=== PATIENT | male | born 1970 | race Caucasian/White ===

== ENCOUNTER 2024-05-15 15:29 | Observation (INO) ==
[2024-05-15] MEDS: SODIUM CHLORIDE 0.9% 1,000 ML IV ONE (15:59)
[2024-05-15 16:26] LABS: Basophils # (auto) 0.04 K/uL (0.00-0.20); Basophils % (auto) 0.2 %; Eosinophils # (auto) 0.05 K/uL (0.00-0.50); Eosinophils % (auto) 0.3 %; Hematocrit (blood only) 43.7 % (42.0-52.0); Hemoglobin 14.6 g/dl (14.0-18.0); Immature Granulocytes # (auto) 0.08 K/uL (0.01-0.20); Immature Granulocytes % (auto) 0.4 %; Lymphocytes # (auto) 1.65 K/uL (1.20-3.40); Lymphocytes % (auto) 8.9 %; Mean Corpuscular Hemoglobin 28.7 pg (25.0-34.0); Mean Corpuscular Hgb Conc 33.4 g/dL (32.0-36.0); Mean Platelet Volume 9.7 fL (9.4-12.4); Monocytes # (auto) 1.21 K/uL (0.11-0.59); Monocytes % (auto) 6.5 %; Neutrophils # (auto) 15.51 K/uL (1.40-6.50); Neutrophils % (auto) 83.7 %; Platelet Count 341 K/uL (130-400); RDW Standard Deviation 37.6 fL (36.4-46.3); Red Blood Count 5.08 M/uL (4.70-6.10); White Blood Count 18.54 K/ul (4.8-10.8)
[2024-05-15] MEDS: ONDANSETRON INJ 2 MG/ML 2 ML VIAL IV STA (16:27)
[2024-05-15] MEDS: KETOROLAC TROMETHAMINE 15 MG/ML VIAL IV STA (16:27)
[2024-05-15 16:42] LABS: Albumin Globulin Ratio 1.7 (0.9-2); Albumin Level 4.3 gm/dl (3.4-5.0); BUN Creatinine Ratio 9.5 (10-20); Bilirubin,Total 0.8 mg/dl (0.2-1.0); Calcium 9.2 mg/dl (8.6-10.3); Creatinine Clr Calc Pharmacy 72.8 ml/min; Globulin 2.6 gm/dl (2.5-4.0); Potassium 4.2 mmol/L (3.5-5.1); Total Protein 6.9 gm/dl (6.0-8.3)
[2024-05-15] MEDS: SODIUM CHLORIDE 0.9% 1,000 ML IV SCH (18:28)
[2024-05-15] MEDS ORDERED: MoRPHine SULFATE 2 MG/ML CARP IV PRN (18:37)
[2024-05-15 18:59] LABS: Appearance Urine Clear (Clear); Bacteria Urine Automated None Seen (None Seen); Bilirubin Urine Negative (Negative); Blood Urine 3+ (Negative); Cast Urine Automated 0-2 /lpf (0-2); Color Urine Yellow; Epithelial Cell Urine Auto 0-2 /hpf (0-2); Glucose Urine UA Negative (Negative); Ketones Urine Trace (Negative); Leukocyte Esterase Urine Negative (Negative); Nitrite Urine Negative (Negative); Protein Urine Negative (Negative); RBC Urine Automated >20 /hpf (0-2); Specific Gravity Urine 1.031 (1.000-1.030); Urobilinogen Urine Negative (Negative); WBC Urine Automated 0-5 /hpf (0-5)
--- NOTE | 2024-05-15 19:02 | History & Physical Report ---
Date of Service May 15, 2024 Assessment & Plan (1) Calculus of distal left ureter: (2) MATTHEW (acute kidney injury): (3) Elevated WBC count: Plan 53 yr old M w/o known PMH being managed for the following: #Distal L ureteral calculus with mild hydronephrosis #MATTHEW #Leukocytosis admit to medical initial UA today and yesterday negative for bacturia empirically tx with 2g IV rocephin given leukocytosis though likely reactive in setting of pain given matthew avoid nephrotoxic agents Schedule APAP, prn oxy for moderate pain and prn IV morphine for severe pain NSS 150/hr continue flomax NPO after midnight, consult urology who will see pt in the am. Unknown baseline renal fxn, suspect elevated in setting of stone, repeat bmp in a.m. he did receive a dose of Toradol in ED #tobacco abuse: chews 4cans/week, encourage cessation, nicotine patch offered and declined at this time #Elevated BP reading: likely in setting of pain, monitor closely, prn IV hydralazine ordered for SBP > 180 DVT ppx: encourage ambulation, if to remain hospitalized > 24hrs consider chemical ppx FULL CODE PCP: None, needs to establish Dispo: admit to medical Pt was seen and examined in collaboration with Dr. Duron, please see addendum I spent a total of 52 minutes coordinating, documenting and providing care for this patient excluding time spent in the performance of separately billed services or time spent by another provider/QHP. History of Present Illness Chief Complaint: Suprapubic pain x 4 days. Primary Care Provider: NO PCP This is a 53-year-old male who has a no pertinent significant past medical history who presents to ED secondary to suprapubic pain. Patient was seen in ED yesterday secondary to left flank pain. He underwent a CT scan of his abdomen pelvis which revealed a 5 mm distal left ureteral calculus associate with perinephritic and periureteral stranding. The degree of left hydronephrosis difficult to assess given parapelvic cysts however at most mild left hydronephrosis was noted. He was discharged with daily Flomax as well as Zofran. He states he woke up at approximately 5 AM this morning secondary to severe left lower quadrant pain. The pain has been waxing and waning throughout the day and currently is located in the suprapubic region. Currently he states pain is 8 out of 10. He reports having a kidney stone in the past for which he sought urgent care and believes he passed on his own. He denies ever having a procedure for a kidney stone. He denies any dysuria or hematuria. He admits to decreased frequency. He has been pushing fluids throughout today and otherwise has a decreased appetite. He denies any fever, chills, sweats, lightheadedness, dizziness, chest pain, shortness of breath, nausea or vomiting. He has not followed with a routine primary care provider. He is unaware of any chronic illnesses he does not take any prescription medication on a regular basis. He is unaware of when his last kidney function may have been evaluated or what the number was. He denies any family history of any renal disease. He does chew 4 cans of snuff a week but otherwise denies any smoking or alcohol use. In ED patient was hemodynamically stable. He was moderately hypertensive in setting of pain. He did have an elevated white blood cell count of 18.54k and elevated creatinine of 1.47. His urinalysis was negative for bacteria. Hx obtained from pt and ED provider. Allergies Allergy/AdvReac Type Severity Reaction Status Date / Time No Known Allergies Allergy Mild Verified 05/14/24 08:46 Home Medications Medication Instructions Recorded Confirmed Type ondansetron 4 mg disintegrating 4 mg PO Q8H PRN nausea and 05/14/24 05/15/24 Rx tablet vomiting #10 tabs tamsulosin 0.4 mg capsule (Flomax) 0.4 mg PO DAILY #14 caps 05/14/24 05/15/24 Rx Past Med/Surg History Problem List (Updated 05/15/24 @ 23:10 by Bladimir Villar MD) MATTHEW (acute kidney injury) Acute left flank pain (Acute) Elevated serum creatinine (Acute) Elevated WBC count (Acute) Calculus of distal left ureter (Acute) Neuritis of left saphenous nerve Bursitis, prepatellar, left Surgical History H/O arthroscopy of right knee Family History Brother Crohn's disease Denies family history of Diabetes Coronary heart disease Kidney disease Social History Smoking Status: Former smoker Tobacco Type: Smokeless Tobacco (Dip or Chew) Second Hand Exposure: No; Do You Dip or Chew Tobacco: Yes (chews 4 cans a week); Hx Alcohol Use: No Hx Substance Use: No Preferred Language: Persian Communication Ability: Effective Patient Access Associate Required: No Beliefs That Will Affect Care: None marital status: Current Living Situation: Other Current Living Situation Comment: lives with son Feels Safe at Home: Yes Assistive Devices: Glasses Review of Systems Review of Systems: All systems reviewed & are unremarkable except as noted in HPI & below Physical Exam Physical Exam: Constitutional: WD/WN, vitals as above, Appears in pain, sitting up in bed, pleasant, conversing easily Head: Normocephalic, Atraumatic Eyes: PERRL, conjunctivae normal, anicteric sclerae ENMT: external ear and nose normal, oropharynx normal Neck: trachea midline, no thyromegaly normal visual inspection Respiratory: normal respiratory effort, lungs clear to auscultation, no wheeze, rales, rhonchi. Normal insp/exp effort, no accessory muscle use Cardiovascular: RRR, no murmur, no edema Vessels: no JVD or carotid bruit Chest: normal inspection of chest Abdomen: TTP suprapubic region, normal bowel sounds, soft, nontender, no hepatosplenomegaly Musculoskeletal: no cyanosis or clubbing, extremities motor strength 5/5 Skin: no rashes, warm and dry normal turgor Neurologic: PERRL, EOMI, accommodation nl, no face palsy, no dysarthria CN's II-XI intact bilaterally and moves all extremities Psychiatric: A+Ox3, euthymic affect Lymphatic: no cervical or axillary lymphadenopathy : deferred Results & Data Results & Data Vital Signs (Past 12 Hours) Vital Signs Temp Pulse Pulse Resp BP BP Pulse Ox 05/15/24 17:29 56 L 18 152/100 H 96 05/15/24 17:15 60 05/15/24 15:46 36.9 C 65 18 151/86 H 96 O2 Del Method 05/15/24 17:29 Room Air 05/15/24 17:15 05/15/24 15:46 Room Air Laboratory Results I have independently reviewed and interpreted patient's admitting labs including CBC, CMP, UA Medications Administered Medication List Sodium Chloride (Nss) 1,000 mls @ 125 mls/hr IV .Q8H NERIS Stop: 05/16/24 18:14 Last Admin: 05/15/24 18:28 Dose: 125 mls/hr Documented By: JAMAAL Discontinued Medications Sodium Chloride (Nss) 1,000 mls @ 999 mls/hr IV .Q1H1M ONE Stop: 05/15/24 16:50 Last Infusion: 05/15/24 17:15 Dose: Infused Documented By: Admin: 05/15/24 15:59 Dose: 999 mls/hr Documented By: CATALINA Ketorolac Tromethamine (Ketorolac Tromethamine 15 Mg/Ml Vial) 15 mg IV NOW STA Stop: 05/15/24 16:22 Last Admin: 05/15/24 16:27 Dose: 15 mg Documented By: OLGA Ondansetron HCl (Ondansetron Inj 2 Mg/Ml 2 Ml Vial) 4 mg IV NOW STA Stop: 05/15/24 16:22 Last Admin: 05/15/24 16:27 Dose: 4 mg Documented By: OLGA COVID-19 Results Results COVID-19 Adm Lab Results: RBC 5.08 M/uL (4.70-6.10) 05/15/24 WBC 18.54 K/ul (4.8-10.8) H 05/15/24 Hgb 14.6 g/dl (14.0-18.0) 05/15/24 Hct 43.7 % (42.0-52.0) 05/15/24 Plt Count 341 K/uL (130-400) 05/15/24 Neutrophils (%) (Auto) 83.7 % 05/15/24 Lymphocytes (%) (Auto) 8.9 % 05/15/24 Monocytes # (Auto) 1.21 K/uL (0.11-0.59) H 05/15/24 Eosinophils # (Auto) 0.05 K/uL (0.00-0.50) 05/15/24 Immature Granulocyte % (Auto) 0.4 % 05/15/24 Neutrophils # (Auto) 15.51 K/uL (1.40-6.50) H 05/15/24 Lymphocytes # (Auto) 1.65 K/uL (1.20-3.40) 05/15/24 Monocytes # (Auto) 1.21 K/uL (0.11-0.59) H 05/15/24 Eosinophils # (Auto) 0.05 K/uL (0.00-0.50) 05/15/24 Basophils # (Auto) 0.04 K/uL (0.00-0.20) 05/15/24 Immature Granulocyte # (Auto) 0.08 K/uL (0.01-0.20) 5 Na 137 mmol/L (136-145) 05/15/24 K 4.2 mmol/L (3.5-5.1) 05/15/24 Cl 102 mmol/L (98-107) 05/15/24 CO2 28 mmol/L (21-32) 05/15/24 Anion Gap 7 (3-11) 05/15/24 BUN 14 mg/dl (6-23) 05/15/24 Creatinine 1.47 mg/dl (0.6-1.4) H 05/15/24 BUN/Creatinine Ratio 9.5 (10-20) L 05/15/24 Glucose Level 122 mg/dl (70-99(Fasting)) H 05/15/24 Ca 9.2 mg/dl (8.6-10.3) 05/15/24 Total Bilirubin 0.8 mg/dl (0.2-1.0) 05/15/24 AST/SGOT 18 U/L (13-39) 05/15/24 ALT/SGPT 19 U/L (7-52) 05/15/24 Alkaline Phosphatase 65 U/L (34-104) 05/15/24 Total Protein 6.9 gm/dl (6.0-8.3) 05/15/24 Albumin 4.3 gm/dl (3.4-5.0) 05/15/24 Globulin 2.6 gm/dl (2.5-4.0) 05/15/24 Albumin/Globulin Ratio 1.7 (0.9-2) 05/15/24 Code Status & VTE Plan Code Status FULL CODE VTE Prophylaxis Plan VTE Prophylaxis will be ordered: No Supervising Physician Co-Signing Physician Notes Pt was seen and examined by myself, Sharon Duron MD on the day of service. Care was coordinated with Violeta Corona PA-C. 53yoM with obstructed kidney stone on the left, hydroureteronephrosis, perinephric starnding. Leukocytosis of 18K noted. UA grossly unremarkable. IV abx, pain control, strain urine. Urology consult. MATTHEW-unsure if current creatine is baseline Otherwise as above I spent a total [id number] coordinating, documenting, and providing care for this patient excluding time spent in the performance of separately billed services
[2024-05-15] MEDS: ACETAMINOPHEN 1,000 MG/100 ML VIAL IV STA (19:20)
--- NOTE | 2024-05-15 19:22 | XRay Report ---
Exam: 1 view abdomen. History: Left ureteral calculus. Left upper quadrant pain extending into the lower abdomen. Comparison: None. Findings: Small calcification projecting over the left inferior renal silhouette likely representing nephrolithiasis. No definitive calcification along the expected left ureteral distribution. Faint densities of the left pelvis may represent small calculi. Location indeterminate. There is small calcified density projecting over the right renal silhouette likely representing nephrolithiasis. No appreciated expected ureteral distribution calculus. Impression: Likely small bilateral renal calculi. No expected ureteral distribution calculi with small faint hyperdensities of the left pelvis. These may represent phleboliths. Distal ureteral calculi not entirely excluded. CT would be helpful for further characterization. Electronically signed by David Iqbal 05-15-2024 7:21 PM
--- NOTE | 2024-05-15 21:04 | Urology Consultation ---
Date of Consultation May 15, 2024 Assessment & Plan (1) Acute left flank pain: The patient has been admitted on the hospitalist service. From a urologic perspective we recommend the following: Provide analgesics Provide antiemetics Continue Flomax for expulsive therapy Hydrate with IV fluids Patient has been placed on empiric Rocephin and this can be tailored based on pending culture results At the present time the patient is normotensive without tachycardia or fever. He is nontoxic-appearing therefore I feel conservative measures are warranted at this time Will empirically make patient n.p.o. after midnight and he will be reevaluated by urology attending on 05/16/2024 and a determination will be made if patient requires cystoscopic intervention. Supervising Physician Co-Signing Physician Notes I have discussed Mr. Oliva's case with Jesu Scanlon PA-C and agree with the above documentation. -Gavin Matute MD. History of Present Illness Reason for Consultation: Renal colic Attending Physician: Sharon Gillis MD History of Present Illness This is a 53-year-old male who presents to the emergency department secondary to left flank pain. Patient says that this pain began approximate 24 hours ago and was located in the left flank pain with radiation to the front of his abdomen. He did not have any nausea or vomiting. He denies any fevers, shakes, or chills. He denies any dysuria or hematuria. He does report a remote history of kidney stone several years ago but did not require any procedure intervention. Patient notes that he did present to the emergency department on 05/14/2024 but was able to be discharged home. During this visit the patient did have a CT scan of the abdomen pelvis which showed the patient had a 5 mm distal left ureteral calculus with some perinephric stranding and some mild left h ydronephrosis. Labs at that time included CBC were white blood cell count was elevated 13.8. Hemoglobin and hematocrit as well as a platelet count were normal. Chemistry profile showed sodium and potassium were normal. His BUN and creatinine were 18 and 1.4. The urinalysis was not indicative of infection at that time. The patient returned to the emergency department this evening secondary to continued pain. He did have additional imaging which I independent reviewed. KUB showed the patient had what the radiologist felt were likely small bilateral renal calculi. A distal ureteral calculi could not be excluded. He had repeat labs where CBC revealed white blood cell count of 18.5. Hemoglobin, hematocrit, and platelet count were normal. Chemistry profile showed sodium and potassium were normal. His BUN and creatinine were 14 and 1.4. The urinalysis was again not indicative of infection. At the time of my interview the patient was resting comfortably in bed and he was in no distress Allergies Allergy/AdvReac Type Severity Reaction Status Date / Time No Known Allergies Allergy Mild Verified 05/14/24 08:46 Home Medications Medication Instructions Recorded Confirmed Type ondansetron 4 mg disintegrating 4 mg PO Q8H PRN nausea and 05/14/24 05/15/24 Rx tablet vomiting #10 tabs tamsulosin 0.4 mg capsule (Flomax) 0.4 mg PO DAILY #14 caps 05/14/24 05/15/24 Rx Patient History Surgical History H/O arthroscopy of right knee Family History Brother Crohn's disease Denies family history of Diabetes Coronary heart disease Kidney disease Social History Smoking Status: Former smoker Tobacco Type: Smokeless Tobacco (Dip or Chew) Second Hand Exposure: No; Do You Dip or Chew Tobacco: Yes (chews 4 cans a week); Hx Alcohol Use: No Hx Substance Use: No Preferred Language: Cymro Communication Ability: Effective Elevator Installer Required: No Beliefs That Will Affect Care: None marital status: Current Living Situation: Other Current Living Situation Comment: lives with son Feels Safe at Home: Yes Assistive Devices: Glasses Review of Systems Review of Systems: All systems reviewed & are unremarkable except as noted in HPI & below Physical Exam Constitutional: WD/WN, vitals as above Eyes: eyes not dysmorphic and + abnormal visual field confrontation ENMT: Ears: no hearing impairment and no external ear abnormality Mouth: no oropharynx abnormality Neck: trachea midline Respiratory: normal respiratory effort; no respiratory distress and no labored breathing Cardiovascular: Rate/Rhythm: regular rate and regular rhythm Gastrointestinal (Abdomen): Soft and nondistended. There is no pain with palpation Musculoskeletal: No calf tenderness Skin: no rashes Neurologic: moves all extremities Psychiatric: A+Ox3, euthymic affect Genitourinary: Slight CVA tenderness noted percussion on the left. No CVA tenderness with percussion on the right Results & Data Vital Signs (Past 12 Hours) Vital Signs Temp Pulse Pulse Resp BP BP Pulse Ox 05/15/24 19:00 68 20 174/99 H 96 05/15/24 17:29 56 L 18 152/100 H 96 05/15/24 17:15 60 05/15/24 15:46 36.9 C 65 18 151/86 H 96 O2 Del Method 05/15/24 19:00 Room Air 05/15/24 17:29 Room Air 05/15/24 17:15 05/15/24 15:46 Room Air PG Care Time/CCT Total # of Minutes Spent Total Time Spent with Patient: Total time spent is greater than 50% in coordination of care (as documented) at patient's floor/unit and/or counseling patient: Coding Level of Care Code 81934 IN/OBS CONSULT LVL 5,80M Diagnoses Acute left flank pain R10.9
[2024-05-15] MEDS ORDERED: ACETAMINOPHEN 325 MG TAB PO PRN (21:15)
[2024-05-15] MEDS ORDERED: oxyCODONE HCL IR 5 MG TAB (IMMEDIATE RELEASE) PO PRN (21:15)
[2024-05-15] MEDS ORDERED: ONDANSETRON INJ 2 MG/ML 2 ML VIAL IV PRN (21:15)
[2024-05-15] MEDS ORDERED: POLYETHYLENE (MIRALAX) 17 GM PACK PO PRN (21:15)
[2024-05-15] MEDS: cefTRIAXone SODIUM 2,000 MG/50 ML BAG IV SCH (22:06)
[2024-05-15] MEDS: ACETAMINOPHEN 325 MG TAB PO SCH (22:07)
--- NOTE | 2024-05-15 23:11 | Emergency Department Note ---
History of Present Illness General Chief Complaint: Flank Pain Stated Complaint: BACK SIDE PAIN Time Seen by Provider: 05/15/24 16:20 History of Present Illness Provider Complaint: flank pain Onset (ago): 2 day(s) Pain Consistency: intermittent Location: L flank Migration to: no migration Maximum Pain Intensity: 10 Quality: + stabbing and + sharp Relieved By: + nothing Exacerbated By: + nothing Context: no foreign travel, no possible food poisoning, no sick contacts, no recent antibiotic use, no recent surgery/procedure or no recent injury Associated Symptoms: + nausea; no vomiting, no diarrhea, no fever, no chills, no constipation, no dysuria, no hematemesis, no hematochezia, no hematuria, no headache, no chest pain and no breathing difficulty Difficulty urinating. Patient reports she was diagnosed with kidney stones yesterday in the emergency department discharged home. Home Medications Medication Instructions Recorded Confirmed Type ondansetron 4 mg disintegrating 4 mg PO Q8H PRN nausea and 05/14/24 05/15/24 Rx tablet vomiting #10 tabs tamsulosin 0.4 mg capsule (Flomax) 0.4 mg PO DAILY #14 caps 05/14/24 05/15/24 Rx Allergies Allergy/AdvReac Type Severity Reaction Status Date / Time No Known Allergies Allergy Mild Verified 05/14/24 08:46 Past Med/Surg History Problem List (Updated 05/15/24 @ 23:10 by Bladimir Villar MD) MATTHEW (acute kidney injury) Acute left flank pain (Acute) Elevated serum creatinine (Acute) Elevated WBC count (Acute) Calculus of distal left ureter (Acute) Neuritis of left saphenous nerve Bursitis, prepatellar, left Surgical History H/O arthroscopy of right knee Family History Brother Crohn's disease Denies family history of Diabetes Coronary heart disease Kidney disease Social History Smoking Status: Former smoker Tobacco Type: Smokeless Tobacco (Dip or Chew) Second Hand Exposure: No; Do You Dip or Chew Tobacco: Yes (chews 4 cans a week); Hx Alcohol Use: No Hx Substance Use: No Preferred Language: Kinyarwanda Communication Ability: Effective Elementary Principal Required: No Beliefs That Will Affect Care: None marital status: Current Living Situation: Other Current Living Situation Comment: lives with son Feels Safe at Home: Yes Assistive Devices: Glasses Physical Exam 2 Vital Signs: Vital Signs - 24 hr 05/15/24 15:46 05/15/24 17:15 05/15/24 17:29 Temperature 36.9 C Temperature Source Temporal Artery Sc an Pulse Rate 65 60 Pulse Rate [Apical ] 56 L Pulse Rhythm [Apic al] Regular Pulse Strength [Ap ical] Normal Respiratory Rate 18 18 Respiratory Effort / Characteristics Non-Labored Sponta neous Non-Labored Sponta neous Respiratory Depth Normal Normal Respiratory Patter n Regular Blood Pressure 151/86 H Blood Pressure [Ri ght Arm] 152/100 H Blood Pressure Vane n 107 Blood Pressure Vane n [Right Arm] 117 Blood Pressure Pos ition Sitting Blood Pressure Pos ition [Right Arm] Lying Pulse Oximetry 96 96 Oxygen Delivery Me thod Room Air Room Air Sepsis Recent Feve r Within 48 Hours No Sepsis New/Unexpla ined Change in Men rome Status N/A Sepsis Action Take n by Nursing No Action Required Physical Exam: Physical Exam GENERAL: oriented to person, place, and time. appears well-developed and well- nourished. She does not appear distressed. HENT: Exam performed. -Head: Normocephalic and atraumatic. -Right Ear: External ear normal. No mastoid erythema -Left Ear: External ear normal. No mastoid erythema -Mouth/Throat: The oropharynx is clear and moist. No trismus in the jaw. No dental abscesses or uvula swelling. No oropharyngeal exudate or tonsillar abscesses. EYES: Conjunctivae and EOM are normal.Right eye exhibits no discharge. Left eye exhibits no discharge. No scleral icterus. NECK: Normal range of motion. Neck supple. No JVD present. No tracheal deviation and normal range of motion present. CV: Normal rate, regular rhythm, normal heart sounds and intact distal pulses. There is no peripheral edema. Palpable radial pulses bue. PULM/CHEST: Effort normal and breath sounds normal. No respiratory distress. No stridor. no wheezes.no rales. -Chest Wall: no tenderness to palpation ABD: The abdomen is soft. Bowel sounds are normal. no distension. No mass is present. There is no tenderness. There is no rebound, no guarding, no Tylre's sign and no tenderness at McBurney's point. Rovsig negative MUSC/SKEL: Normal range of motion. There is no peripheral edema, tenderness or deformity. NEURO: Motor and sensation grossly intact. SKIN: Skin is warm and dry. not diaphoretic. PSYCH: normal mood and affect. Behavior is normal. Judgment and thought content normal. Course Course 1620: The patient was evaluated in room A3. A complete history and physical exam was performed Cardiac monitoring: An order was placed for continuous cardiac monitoring. The monitor shows a rate of 60 with sinus rhythm interpreted by me External medical records reviewed. Patient was seen in the emergency department yesterday and diagnosed with 5 mm distal left ureteral calculus with perinephric and perirectal stranding. Urinalysis showed no bacteria yesterday. 1809: Vital signs stable. Labs show leukocytosis of 18. Patient reports his pain is controlled now but he is concerned he will not be able to urinate when he gets home and have increasing pain. Patient will be admitted for renal colic. Urologfelice was made aware and patient will be admitted to the [facility] Hospitalist team. Administered Medications Acetaminophen (Acetaminophen 325 Mg Tab) 650 mg PO QID NERIS Stop: 06/14/24 21:59 Last Admin: 05/15/24 22:07 Dose: 650 mg Documented By: ISMAEL Ceftriaxone Sodium (Rocephin) 2,000 mg in 50 mls @ 100 mls/hr IV Q24H NERIS Stop: 05/25/24 20:59 Last Infusion: 05/15/24 22:39 Dose: Infused Documented By: Admin: 05/15/24 22:06 Dose: 100 mls/hr Documented By: MCS Discontinued Medications Sodium Chloride (Nss) 1,000 mls @ 999 mls/hr IV .Q1H1M ONE Stop: 05/15/24 16:50 Last Infusion: 05/15/24 17:15 Dose: Infused Documented By: Admin: 05/15/24 15:59 Dose: 999 mls/hr Documented By: Jeff Sodium Chloride (Nss) 1,000 mls @ 125 mls/hr IV .Q8H NERIS Stop: 05/16/24 18:14 Last Admin: 05/15/24 18:28 Dose: 125 mls/hr Documented By: JAMAAL Acetaminophen (irmev) 1,000 mg in 100 mls @ 400 mls/hr IV NOW STA Stop: 05/15/24 19:08 Last Infusion: 05/15/24 20:45 Dose: Infused Documented By: Admin: 05/15/24 19:20 Dose: 400 mls/hr Documented By: JAMAAL Ketorolac Tromethamine (Ketorolac Tromethamine 15 Mg/Ml Vial) 15 mg IV NOW STA Stop: 05/15/24 16:22 Last Admin: 05/15/24 16:27 Dose: 15 mg Documented By: OLGA Ondansetron HCl (Ondansetron Inj 2 Mg/Ml 2 Ml Vial) 4 mg IV NOW STA Stop: 05/15/24 16:22 Last Admin: 05/15/24 16:27 Dose: 4 mg Documented By: OLGA Medical Decision Making Laboratory Data Attestation: I reviewed the patient's lab results. 05/15/24 16:00 05/15/24 16:00 Lab Results 05/15/24 05/15/24 Range/Units 16:00 18:15 WBC 18.54 H (4.8-10.8) K/ul RBC 5.08 (4.70-6.10) M/uL Hgb 14.6 (14.0-18.0) g/dl Hct 43.7 (42.0-52.0) % MCV 86.0 (80.0-100.0) fL MCH 28.7 (25.0-34.0) pg MCHC 33.4 (32.0-36.0) g/dL RDW Std Deviation 37.6 (36.4-46.3) fL RDW Coeff of [place] 12.0 (11.5-14.5) % Plt Count 341 (130-400) K/uL MPV 9.7 (9.4-12.4) fL Immature Gran % (Auto) 0.4 % Neut % (Auto) 83.7 % Lymph % (Auto) 8.9 % [place] % (Auto) 6.5 % Eos % (Auto) 0.3 % Baso % (Auto) 0.2 % Neut # (Auto) 15.51 H (1.40-6.50) K/uL Lymph # (Auto) 1.65 (1.20-3.40) K/uL [place] # (Auto) 1.21 H (0.11-0.59) K/uL Eos # (Auto) 0.05 (0.00-0.50) K/uL Baso # (Auto) 0.04 (0.00-0.20) K/uL Immature Gran # (Auto) 0.08 (0.01-0.20) K/uL Sodium 137 (136-145) mmol/L Potassium 4.2 (3.5-5.1) mmol/L Chloride 102 (98-107) mmol/L Carbon Dioxide 28 (21-32) mmol/L Anion Gap 7 (3-11) BUN 14 (6-23) mg/dl Creatinine 1.47 H (0.6-1.4) mg/dl Est Cr Clr Drug Dosing 72.8 ml/min eGFR 57.39 BUN/Creatinine Ratio 9.5 L (10-20) Glucose 122 H (70-99(Fasting)) mg/dl Calcium 9.2 (8.6-10.3) mg/dl Total Bilirubin 0.8 (0.2-1.0) mg/dl AST 18 (13-39) U/L ALT 19 (7-52) U/L Alkaline Phosphatase 65 (34-104) U/L Total Protein 6.9 (6.0-8.3) gm/dl Albumin 4.3 (3.4-5.0) gm/dl Globulin 2.6 (2.5-4.0) gm/dl Albumin/Globulin Ratio 1.7 (0.9-2) Urine Color Yellow Urine Appearance Clear (Clear) Urine pH 5.0 (4.5-7.5) Ur Specific [place] 1.031 H (1.000-1.030) Urine Protein Negative (Negative) Urine Glucose (UA) Negative (Negative) Urine Ketones Trace H (Negative) Urine Blood 3+ H (Negative) Urine Nitrite Negative (Negative) Urine Bilirubin Negative (Negative) Urine Urobilinogen Negative (Negative) Ur Leukocyte Esterase Negative (Negative) Urine WBC (Auto) 0-5 (0-5) /hpf Urine RBC (Auto) >20 H (0-2) /hpf U Hyaline Cast (Auto) 0-2 (0-2) /lpf U Epithel Cells (Auto) 0-2 (0-2) /hpf Urine Bacteria (Auto) None Seen (None Seen) [facility] Narrative 1620: The patient was evaluated in room A3. A complete history and physical exam was performed Cardiac monitoring: An order was placed for continuous cardiac monitoring. The monitor shows a rate of 60 with sinus rhythm interpreted by me External medical records reviewed. Patient was seen in the emergency department yesterday and diagnosed with 5 mm distal left ureteral calculus with perinephric and perirectal stranding. Urinalysis showed no bacteria yesterday. 1810: Vital signs stable. Labs show leukocytosis of 18. Patient reports his pain is controlled now but he is concerned he will not be able to urinate when he gets home and have increasing pain. Patient will be admitted for renal colic. Urology was made aware and patient will be admitted to the [facility] Hospitalist team. Impression & Plan Calculus of distal left ureter Discharge Plan Visit Data Chief Complaint: Flank Pain Stated Complaint: BACK SIDE PAIN ED Provider: Bladimir Villar Discharge Problem: Calculus of distal left ureter Patient Disposition: Admitted As Inpatient Discharge Instructions Interventions: ED Discharge Assessment Last Done: 05/15/24 20:22
[2024-05-16] MEDS: SODIUM CHLORIDE 0.9% 1,000 ML IV SCH (05:17)
[2024-05-16 07:09] LABS: Basophils # (auto) 0.04 K/uL (0.00-0.20); Basophils % (auto) 0.3 %; Eosinophils # (auto) 0.17 K/uL (0.00-0.50); Eosinophils % (auto) 1.5 %; Hematocrit (blood only) 38.7 % (42.0-52.0); Hemoglobin 12.8 g/dl (14.0-18.0); Immature Granulocytes # (auto) 0.04 K/uL (0.01-0.20); Immature Granulocytes % (auto) 0.3 %; Lymphocytes # (auto) 1.98 K/uL (1.20-3.40); Mean Corpuscular Hemoglobin 28.7 pg (25.0-34.0); Mean Corpuscular Hgb Conc 33.1 g/dL (32.0-36.0); Mean Corpuscular Volume 86.8 fL (80.0-100.0); Mean Platelet Volume 9.4 fL (9.4-12.4); Monocytes # (auto) 1.17 K/uL (0.11-0.59); Neutrophils # (auto) 8.25 K/uL (1.40-6.50); Neutrophils % (auto) 70.9 %; Platelet Count 245 K/uL (130-400); RDW Coefficient of Variation 12.2 % (11.5-14.5); RDW Standard Deviation 38.8 fL (36.4-46.3); Red Blood Count 4.46 M/uL (4.70-6.10); White Blood Count 11.65 K/ul (4.8-10.8)
[2024-05-16 07:30] LABS: BUN Creatinine Ratio 10.8 (10-20); Calcium 8.2 mg/dl (8.6-10.3); Creatinine Clr Calc Pharmacy 96.4 ml/min; Potassium 4.2 mmol/L (3.5-5.1)
[2024-05-16] MEDS: TAMSULOSIN HCL 0.4 MG CAP PO SCH (08:43)
[2024-05-16] MEDS: DOCUSATE SODIUM 100 MG CAP PO SCH (08:50)
--- NOTE | 2024-05-16 09:04 | Urology Progress Note ---
Date of Service May 16, 2024 Assessment & Plan (1) Acute left flank pain: (2) Calculus of distal left ureter: Plan 53-year-old male with 4-5 mm distal left ureteral stone. The stone is small enough that I think he has a good chance of passing it spontaneously. We discussed the option of medical expulsive therapy with pain control (Tylenol, ibuprofen, tamsulosin, Pyridium, narcotics if needed, antiemetics). We discussed the alternative of cystoscopy, left retrograde pyelogram and left ureteral stent placement. We discussed risks of surgery including bleeding, infection, need for additional procedures, injury to nearby structures, stent discomfort. After consideration of the options, he would like to hold off intervention for now. We will trial medical expulsive therapy. He can have a diet today. If pain is well-controlled throughout the day, I think he is appropriate for discharge with outpatient follow-up. Admission and Anticipated Discharge Date Admission Date: May 15, 2024 Subjective Feeling well this morning Has not had any significant pain over the last 12 hours Denies any fevers or chills Has not clearly passed his stone at this point Physical Exam Physical Exam: Well-appearing, NAD Results & Data Vital Signs (Past 12 Hours) Vital Signs Temp Pulse Resp BP Pulse Ox O2 Del Method 05/16/24 07:38 36.6 C 63 18 109/70 96 Room Air 05/15/24 21:18 Room Air 05/15/24 21:18 36.6 C 58 L 17 146/76 H 97 Room Air PG Care Time/CCT Total # of Minutes Spent Total Time Spent with Patient: Total time spent is greater than 50% in coordination of care (as documented) at patient's floor/unit and/or counseling patient: Coding Level of Care Code 09826 SUB INP/OBS CARE 2/35MIN Diagnoses Acute left flank pain R10.9 Calculus of distal left ureter N20.1
[2024-05-16] MEDS ORDERED: KETOROLAC TROMETHAMINE 10 MG TABLET PO PRN (12:07)
--- NOTE | 2024-05-16 13:04 | Hospitalist Progress Note ---
Date of Service May 16, 2024 Assessment & Plan (1) Calculus of distal left ureter: (2) MATTHEW (acute kidney injury): (3) Elevated WBC count: Plan Patient is a 53-year-old male w/o known PMH being managed for the following: Distal left ureteral calculus with mild hydronephrosis Obstructive uropathy Acute kidney injury secondary to above Nephrolithiasis --CT ABD:5 mm distal left ureteral calculus with associated perinephric and periureteral stranding. Degree of left hydronephrosis difficult to assess given parapelvic cysts however at most mild left hydronephrosis. Bilateral nephrolithiasis. No bowel obstruction. No bowel wall thickening. Several hemangiomas within the liver. -- UA not suggestive of UTI Continue IV fluids, Flomax Pain control as needed Appreciate urology input Cr levels back to baseline Trial medical expulsive therapy as recommended by urology Plan to be discharged home today Leukocytosis Likely reactive Empirically received IV Rocephin No obvious source of infection Monitor Tobacco abuse: Chews 4cans/week, encourage cessation, nicotine patch offered and declined at this time Elevated BP reading: Secondary to pain Blood pressure better today Monitor Liver hemangiomas Incidental finding on CT Follow-up as outpatient DVT Px: SCDs Code Status FULL CODE Admission and Anticipated Discharge Date Admission Date: May 15, 2024 Subjective Patient is seen and examined at bedside Flank/groin pain resolved Does not believe passed stone yet Denies any chest pain, dyspnea, nausea, vomiting, abdominal pain Review of Systems Review of Systems: All systems reviewed & are unremarkable except as noted in Subjective Physical Exam Physical Exam: Physical Exam: Vitals signs as noted above General Appearance:Moderately built and nourished, no apparent distress Head: normocephalic, Atraumatic Eyes: normal inspection, EOMI Neck: supple, Trachea midline Respiratory/Chest: Normal breath sounds, CTA, No accessory muscle use Cardiovascular: S1, S2, No murmur Abdomen/GI:Soft, Non tender, Bowel sounds present Extremities/Musculoskeletal:normal inspection, no edema Neurologic/Psych:AAOX3, grossly no focal neurological deficits Skin: normal color, warm Results & Data Results & Data Vital Signs (Past 12 Hours) Vital Signs Temp Pulse Resp BP Pulse Ox O2 Del Method 05/16/24 07:38 36.6 C 63 18 109/70 96 Room Air Laboratory Results Short CBC 05/15/24 05/16/24 Range/Units 16:00 06:54 WBC 18.54 H 11.65 H (4.8-10.8) K/ul Hgb 14.6 12.8 L (14.0-18.0) g/dl Hct 43.7 38.7 L (42.0-52.0) % Plt Count 341 245 (130-400) K/uL BMP 05/15/24 05/16/24 16:00 06:54 Sodium 137 140 Potassium 4.2 4.2 Chloride 102 108 H Carbon Dioxide 28 30 BUN 14 12 Creatinine 1.47 H 1.11 D Glucose 122 H 113 H Calcium 9.2 8.2 L Liver Function 05/15/24 Range/Units 16:00 Total Bilirubin 0.8 (0.2-1.0) mg/dl AST 18 (13-39) U/L ALT 19 (7-52) U/L Alkaline Phosphatase 65 (34-104) U/L Albumin 4.3 (3.4-5.0) gm/dl Urine 05/15/24 Range/Units 18:15 Urine Color Yellow Urine Appearance Clear (Clear) Urine pH 5.0 (4.5-7.5) Ur Specific [place] 1.031 H (1.000-1.030) Urine Protein Negative (Negative) Urine Glucose (UA) Negative (Negative)
--- NOTE | 2024-05-16 13:18 | Discharge Summary ---
Date of Service May 16, 2024 Admission HPI Per Admitting Provider This is a 53-year-old male who has a no pertinent significant past medical history who presents to ED secondary to suprapubic pain. Patient was seen in ED yesterday secondary to left flank pain. He underwent a CT scan of his abdomen pelvis which revealed a 5 mm distal left ureteral calculus associate with perinephritic and periureteral stranding. The degree of left hydronephrosis difficult to assess given parapelvic cysts however at most mild left hydronephrosis was noted. He was discharged with daily Flomax as well as Zofran. He states he woke up at approximately 5 AM this morning secondary to severe left lower quadrant pain. The pain has been waxing and waning throughout the day and currently is located in the suprapubic region. Currently he states pain is 8 out of 10. He reports having a kidney stone in the past for which he sought urgent care and believes he passed on his own. He denies ever having a procedure for a kidney stone. He denies any dysuria or hematuria. He admits to decreased frequency. He has been pushing fluids throughout today and otherwise has a decreased appetite. He denies any fever, chills, sweats, lightheadedness, dizziness, chest pain, shortness of breath, nausea or vomiting. He has not followed with a routine primary care provider. He is unaware of any chronic illnesses he does not take any prescription medication on a regular basis. He is unaware of when his last kidney function may have been evaluated or what the number was. He denies any family history of any renal disease. He does chew 4 cans of snuff a week but otherwise denies any smoking or alcohol use. In ED patient was hemodynamically stable. He was moderately hypertensive in setting of pain. He did have an elevated white blood cell count of 18.54k and elevated creatinine of 1.47. His urinalysis was negative for bacteria. Hx obtained from pt and ED provider. Admission Exam Per Admitting Provider Constitutional: WD/WN, vitals as above, Appears in pain, sitting up in bed, pleasant, conversing easily Head: Normocephalic, Atraumatic Eyes: PERRL, conjunctivae normal, anicteric sclerae ENMT: external ear and nose normal, oropharynx normal Neck: trachea midline, no thyromegaly normal visual inspection Respiratory: normal respiratory effort, lungs clear to auscultation, no wheeze, rales, rhonchi. Normal insp/exp effort, no accessory muscle use Cardiovascular: RRR, no murmur, no edema Vessels: no JVD or carotid bruit Chest: normal inspection of chest Abdomen: TTP suprapubic region, normal bowel sounds, soft, nontender, no hepatosplenomegaly Musculoskeletal: no cyanosis or clubbing, extremities motor strength 5/5 Skin: no rashes, warm and dry normal turgor Neurologic: PERRL, EOMI, accommodation nl, no face palsy, no dysarthria CN's II-XI intact bilaterally and moves all extremities Psychiatric: A+Ox3, euthymic affect Lymphatic: no cervical or axillary lymphadenopathy : deferred Principal Diagnosis Distal left ureteral calculus with hydronephrosis Obstructive uropathy Acute kidney injury--resolved Nephrolithiasis Liver hemangiomas--incidental finding on CT Discharge Data Allergies Allergy/AdvReac Type Severity Reaction Status Date / Time No Known Allergies Allergy Mild Verified 05/14/24 08:46 Consultations 05/15/24 18:08 Consult Urology Routine 05/15/24 18:10 ED Decision to Admit Stat Procedures Performed Laboratory Results WBC 11.65 K/ul (4.8-10.8) H 05/16/24 06:54 RBC 4.46 M/uL (4.70-6.10) L 05/16/24 06:54 Hgb 12.8 g/dl (14.0-18.0) L 05/16/24 06:54 Hct 38.7 % (42.0-52.0) L 05/16/24 06:54 MCV 86.8 fL (80.0-100.0) 05/16/24 06:54 MCH 28.7 pg (25.0-34.0) 05/16/24 06:54 MCHC 33.1 g/dL (32.0-36.0) 05/16/24 06:54 RDW Std Deviation 38.8 fL (36.4-46.3) 05/16/24 06:54 RDW Coeff of Coty 12.2 % (11.5-14.5) 05/16/24 06:54 Plt Count 245 K/uL (130-400) 05/16/24 06:54 MPV 9.4 fL (9.4-12.4) 05/16/24 06:54 Immature Gran % (Auto) 0.3 % 05/16/24 06:54 Neut % (Auto) 70.9 % 05/16/24 06:54 Lymph % (Auto) 17.0 % 05/16/24 06:54 Owsley % (Auto) 10.0 % 05/16/24 06:54 Eos % (Auto) 1.5 % 05/16/24 06:54 Baso % (Auto) 0.3 % 05/16/24 06:54 Neut # (Auto) 8.25 K/uL (1.40-6.50) H 05/16/24 06:54 Lymph # (Auto) 1.98 K/uL (1.20-3.40) 05/16/24 06:54 Owsley # (Auto) 1.17 K/uL (0.11-0.59) H 05/16/24 06:54 Eos # (Auto) 0.17 K/uL (0.00-0.50) 05/16/24 06:54 Baso # (Auto) 0.04 K/uL (0.00-0.20) 05/16/24 06:54 Immature Gran # (Auto) 0.04 K/uL (0.01-0.20) 05/16/24 06:54 Sodium 140 mmol/L (136-145) 05/16/24 06:54 Potassium 4.2 mmol/L (3.5-5.1) 05/16/24 06:54 Chloride 108 mmol/L (98-107) H 05/16/24 06:54 Carbon Dioxide 30 mmol/L (21-32) 05/16/24 06:54 Anion Gap 2 (3-11) L 05/16/24 06:54 BUN 12 mg/dl (6-23) 05/16/24 06:54 Creatinine 1.11 mg/dl (0.6-1.4) D 05/16/24 06:54 Est Cr Clr Drug Dosing 96.4 ml/min 05/16/24 06:54 eGFR 80.40 05/16/24 06:54 BUN/Creatinine Ratio 10.8 (10-20) 05/16/24 06:54 Glucose 113 mg/dl (70-99(Fasting)) H 05/16/24 06:54 Calcium 8.2 mg/dl (8.6-10.3) L 05/16/24 06:54 Magnesium 2.0 mg/dl (1.7-2.4) 05/16/24 06:54 Total Bilirubin 0.8 mg/dl (0.2-1.0) 05/15/24 16:00 AST 18 U/L (13-39) 05/15/24 16:00 ALT 19 U/L (7-52) 05/15/24 16:00 Alkaline Phosphatase 65 U/L (34-104) 05/15/24 16:00 Total Protein 6.9 gm/dl (6.0-8.3) 05/15/24 16:00 Albumin 4.3 gm/dl (3.4-5.0) 05/15/24 16:00 Globulin 2.6 gm/dl (2.5-4.0) 05/15/24 16:00 Albumin/Globulin Ratio 1.7 (0.9-2) 05/15/24 16:00 Urine Color Yellow 05/15/24 18:15 Urine Appearance Clear (Clear) 05/15/24 18:15 Urine pH 5.0 (4.5-7.5) 05/15/24 18:15 Ur Specific Wyckoff 1.031 (1.000-1.030) H 05/15/24 18:15 Urine Protein Negative (Negative) 05/15/24 18:15 Urine Glucose (UA) Negative (Negative) 05/15/24 18:15 Urine Ketones Trace (Negative) H 05/15/24 18:15 Urine Blood 3+ (Negative) H 05/15/24 18:15 Urine Nitrite Negative (Negative) 05/15/24 18:15 Urine Bilirubin Negative (Negative) 05/15/24 18:15 Urine Urobilinogen Negative (Negative) 05/15/24 18:15 Ur Leukocyte Esterase Negative (Negative) 05/15/24 18:15 Urine WBC (Auto) 0-5 /hpf (0-5) 05/15/24 18:15 Urine RBC (Auto) >20 /hpf (0-2) H 05/15/24 18:15 U Hyaline Cast (Auto) 0-2 /lpf (0-2) 05/15/24 18:15 U Epithel Cells (Auto) 0-2 /hpf (0-2) 05/15/24 18:15 Urine Bacteria (Auto) None Seen (None Seen) 05/15/24 18:15 Impressions KUB X-Ray 05/15/24 18:30 Exam: 1 view abdomen. History: Left ureteral calculus. Left upper quadrant pain extending into the lower abdomen. Comparison: None. Findings: Small calcification projecting over the left inferior renal silhouette likely representing nephrolithiasis. No definitive calcification along the expected left ureteral distribution. Faint densities of the left pelvis may represent small calculi. Location indeterminate. There is small calcified density projecting over the right renal silhouette likely representing nephrolithiasis. No appreciated expected ureteral distribution calculus. Impression: Likely small bilateral renal calculi. No expected ureteral distribution calculi with small faint hyperdensities of the left pelvis. These may represent phleboliths. Distal ureteral calculi not entirely excluded. CT would be helpful for further characterization. Electronically signed by David Iqbal 05-15-2024 7:21 PM Hospital Course (1) Calculus of distal left ureter: (2) MATTHEW (acute kidney injury): (3) Elevated WBC count: Plan Patient is a 53-year-old male w/o known PMH being managed for the following: Distal left ureteral calculus with mild hydronephrosis Obstructive uropathy Acute kidney injury secondary to above Nephrolithiasis --CT ABD:5 mm distal left ureteral calculus with associated perinephric and periureteral stranding. Degree of left hydronephrosis difficult to assess given parapelvic cysts however at most mild left hydronephrosis. Bilateral nephrolithiasis. No bowel obstruction. No bowel wall thickening. Several hemangiomas within the liver. -- UA not suggestive of UTI Continue IV fluids, Flomax Pain control as needed Appreciate urology input Cr levels back to baseline Trial medical expulsive therapy as recommended by urology Plan to be discharged home today Leukocytosis Likely reactive Empirically received IV Rocephin No obvious source of infection Monitor Tobacco abuse: Chews 4cans/week, encourage cessation, nicotine patch offered and declined at this time Elevated BP reading: Secondary to pain Blood pressure better today Monitor Liver hemangiomas Incidental finding on CT Follow-up as outpatient DVT Px: SCDs Code Status FULL CODE Total Time Total Time Spent Total Time Spent (In Minutes): 36 minutes Discharge Plan Discharge Items Patient Disposition: Home - Self-Care Reason For Visit: KIDNEY STONE Discharge Diagnosis: Distal left ureteral calculus with hydronephrosis Obstructive uropathy Acute kidney injury--resolved Nephrolithiasis Liver hemangiomas--incidental finding on CT Activity: Per Instructions section Exercise/Sports: Gradually increase as tolerated Non-emergency contact: Primary Care Provider and Urologist Call non-emergency contact if: you have any medication questions, your symptoms worsen, your pain is concerning for you and you have a fever Follow-up/Referrals: PCP,NO [Primary Care Provider] - Diet: Regular Addtl Attending Provider Instructions: Follow-up with your primary care physician in 1 week Follow-up with your urologist Dr. Matute as advised -- You are incidentally found to have hemangiomas of liver noted on CT scan. Follow-up with your physician for further recommendations. --Strain urine as recommended --Increase oral fluid intake as advised. Seek immediate medical attention if your symptoms reoccur or worsen Please review medication list provided on discharge for any medication changes as instructed. Please call if you have any questions or problems. You can reach a [facility] hospitalist on duty at [facility] 24 hours a day by calling [phone] Pending Studies at Discharge: No Stand-Alone Forms: [facility], Smoking Cessation Medications and DC Order Prescriptions: New oxycodone 5 mg Tablet 5 mg PO Q8H PRN (Reason: pain) Qty: 10 0RF phenazopyridine [Pyridium] 200 mg Tablet 200 mg PO TID PRN (Reason: pain) Qty: 15 0RF Continued tamsulosin [Flomax] 0.4 mg capsule 0.4 mg PO DAILY Qty: 14 0RF ondansetron 4 mg tablet,disintegrating 4 mg PO Q8H PRN (Reason: nausea and vomiting) Qty: 10 0RF Discharge Orders: Discharge Order (Routine); Ordered 05/16/24 Ordered By: Cecilio Alex Admission Data Admit Date/Time: 05/15/24 18:20 Attending Provider: Cecilio Alex Admit Provider: Sharon Gillis Primary Care Provider: PCP,NO Other Providers: Gavin Matute; Sharon Gillis
[2024-05-16] MEDS: PHENAZOPYRIDINE HCL 200 MG TAB PO PRN (14:15)
[2024-05-16] MEDS ORDERED: TAMSULOSIN HCL 0.4 MG CAP PO SCH (21:00)
== END 2024-05-16 15:06 | disposition home or self-care (01) | DRG 694 ==
LOC: ED 15:29 → SUATTDRO 18:20 → INTOOBSV 18:20 → 3N 18:20